=== PATIENT | female | born 1965 | race Caucasian/White ===

== ENCOUNTER → 2020-04-23 05:57 | Outpatient (CLI) | payer BC, SELFPAY ==
[2020-04-23 07:25] LABS: Absolute Lymphocyte Count 2.85 X10^3/uL (0.83-4.51); Absolute Neutrophil Count 3.4 X10^3/uL (2.0-7.7); Basophil# 0.06 X10^3/uL; Basophil% 0.8 % (0-1); Eosinophil# 0.59 X10^3/uL; Eosinophils% 7.9 % (0-5); Hematocrit 45.7 % (37-47); Hemoglobin 14.8 g/dL (12.0-15.0); Lymphocyte # 2.85 X10^3/ul (4.0); Lymphocyte % 38.3 % (19-41); Mean Corp Hgb Conc 32.4 g/dL (32-36); Mean Corpuscular Hgb 31.3 pg (27.0-32.0); Mean Corpuscular Volume 96.6 fL (81-99); Mean Platelet Vol. 8.9 fl (6.2-12.0); Monocyte% 6.7 % (0-10); NRBC Flagged by Analyzer 0 % (0-5); Neutrophil % 45.8 % (47-70); Platelet Count 321 K/mm3 (150-450); RBC Distribution Width CV 13.4 % (11.6-14.6); RBC Distribution Width SD 47.8 fl (35.1-43.9); Red Blood Count 4.73 M/mm3 (4.2-5.4); White Blood Count 7.4 K/mm3 (4.4-11.0)
[2020-04-23 07:59] LABS: ALB/GLOB Ratio 0.9 RATIO (0.9-2.4); AST(SGOT) 14 U/L (15-37); Alanine Aminotransfer ALT/SGPT 35 U/L (13-56); Albumin, Serum 3.6 g/dL (3.2-5.0); Alkaline Phosphatase 85 U/L (45-117); Anion Gap 4 (5-15); BUN 21 mg/dL (7-18); BUN/Creat Ratio 25.1 RATIO (10-20); Chloride 110 mmol/L (98-107); Cholesterol 241 mg/dL (200); Creatinine, Serum 0.84 mg/dL (0.55-1.02); EST Glomerular Filtration Rate 75 mL/min (>60); Est Glom Filt Rate - Afr Amer 91 mL/min (>60); Globulin 3.9 g/dL (2.2-4.2); Glucose 97 mg/dL (74-106); High Density Lipoprotein 65 mg/dL; Potassium 4.2 mmol/L (3.5-5.1); Protein, Total 7.5 g/dL (6.4-8.2); Sodium Level 142 mmol/L (136-145); Thyroid Stim Hormone (TSH) 3.07 uIU/mL (0.358-3.74); Triglycerides 147 mg/dL; Very Low Density Lipoprotein 29 mg/dL (5-40)
[2020-04-23 09:09] LABS: Hepatitis C Antibody Non-Reactive (Nonreactive)
== END ==
PROVIDERS: PCP Family Medicine; Referring Provider Family Medicine; Visit Provider Family Medicine
DX: Z13.220 Encounter for screening for lipoid disorders (principal); J44.9 Chronic obstructive pulmonary disease, unspecified; R53.83 Other fatigue
CPT/HCPCS: 36415; 80053; 80061; 84443; 85025; 86803

== ENCOUNTER → 2020-05-28 09:30 | Outpatient (CLI) | payer BC, SELFPAY ==
[2017-02-17 02:34] VITALS: BMI 25.9
[2020-05-28 11:15] LABS: Anion Gap 11 (5-15); BUN 17 mg/dL (7-18); Calcium,Total 9.5 mg/dL (8.5-10.1); Chloride 106 mmol/L (98-107); Cholesterol 146 mg/dL (200); Creatinine, Serum 0.77 mg/dL (0.55-1.02); EST Glomerular Filtration Rate 82 mL/min (>60); Est Glom Filt Rate - Afr Amer 99 mL/min (>60); Glucose 85 mg/dL (74-106); High Density Lipoprotein 67 mg/dL; Sodium Level 140 mmol/L (136-145); Triglycerides 66 mg/dL; Very Low Density Lipoprotein 13 mg/dL (5-40)
== END ==
PROVIDERS: PCP Family Medicine; Referring Provider Family Medicine; Visit Provider Family Medicine
DX: E78.5 Hyperlipidemia, unspecified (principal)
CPT/HCPCS: 36415; 80048; 80061

== ENCOUNTER → 2022-11-14 | Outpatient (CLI) | payer OTHER, SELFPAY ==
[2022-11-14 10:28] LABS: Hemoglobin A1c 5.3 % (3.8-5.6)
[2022-11-14 10:59] LABS: Cholesterol 214 mg/dL (200); High Density Lipoprotein 69 mg/dL; Triglycerides 112 mg/dL; Very Low Density Lipoprotein 22 mg/dL (5-40)
--- NOTE | 2022-11-14 14:51 | BI_ITS ---
MAMMOGRAPHY - BILATERAL SCREENING 3-D TOMOSYNTHESIS REASON FOR EXAM: Female, 57 years old. Routine screening PERTINENT HISTORY: No significant family history. TECHNIQUE: 2-D mammograms and 3-D Tomosynthesis of the breast (s) were performed. CAD was performed. COMPARISON: 2007, 2004 FINDINGS: The breast composition is heterogeneously dense that can obscure small breast masses. Scattered benign calcifications are seen. No dense spiculated masses or suspicious microcalcifications are identified. No architectural distortion is identified. There is no skin thickening or retraction. There has been no significant change since the prior study. BI/SCRN MAMM (CAD)W/PANTERA BILAT IMPRESSION: No mammographic signs of malignancy. Routine yearly mammograms recommended. ASSESSMENT CATEGORY: BIRADS Category 2: Benign. A letter regarding these results will be sent to the patient by the facility within 30 days. FOLLOW UP RECOMMENDATION: Yearly follow up mammogram recommended. (A) Approximately 10% of breast cancers are not detected by mammography. A normal mammogram should not delay biopsy of a clinically suspicious abnormality. Electronically Signed: Arron Shepherd MD at 20:57 EDT ,
== END | disposition home or self-care (01) ==
LOC: OPBI 14:50
PROVIDERS: PCP Family Medicine; Referring Provider Family Medicine; Visit Provider Family Medicine
DX: Z12.31 Encounter for screening mammogram for malignant neoplasm of breast (principal); Z00.00 Encounter for general adult medical examination without abnormal findings
CPT/HCPCS: 36415; 77063; 77067; 80061; 83036

== ENCOUNTER 2022-12-19 07:02 | Day surgery (SDC) | payer OTHER, SELFPAY ==
[2022-12-19 07:23] VITALS: BP 133/90; PULSE 81; RESP 16; TEMP 36.4; O2SAT 95; BMI 27.1
--- NOTE | 2022-12-19 07:26 | PCM.HP.BLA ---
History and Physical Date of Admission: 12/19/22 Date of Service: 11/24/22 MR#: [id number] Acct: [id number] Name: TYLOR OLGUIN Rep #: [id number] : 1965 Provider: Dr. Zeynep Helm MD Age/Sex: 57/F Location: [facility] Status: Signed Intake Vital Signs 02/17/1702:34 11/25/2307:36 Height 5 ft 6 in 5 ft 6 in Weight: 171 lb 4 oz BMI 27.6 BP 126/85 H Blood Pressure Location Rt brachial Position Sitting Respiration 18 Pulse 72 Pulse Source Monitor Temp 97.6 F L Temp Source Tympanic Intake Visit Reasons: COLONOSCOPY Chief Complaint: colonoscopy Allergies nickel [Nickel] Allergy (Verified 11/24/22 08:41) Rash Medications albuterol sulfate 90 mcg/actuation aerosol inhaler (Ventolin HFA) 1 - 2 puff inhalation Q6H PRN PRN Bronchospasm 06/02/13 [History Confirmed 11/24/22] fluticasone 500 mcg-salmeterol 50 mcg/dose blistr powdr for inhalation (Advair Diskus) 1 puff inhalation DAILY asthma 06/04/13 [History Confirmed 11/24/22] apixaban 2.5 mg tablet (Eliquis) 2.5 mg PO BID 11/24/22 [History Confirmed 11/24/22] aripiprazole 5 mg tablet (Abilify) 5 mg PO DAILY 11/24/22 [History Confirmed 11/24/22] citalopram 20 mg tablet (Celexa) 20 mg PO DAILY 11/24/22 [History Confirmed 11/24/22] fexofenadine-pseudoephedrine ER 180 mg-240 mg tablet,ext.release 24 hr (Lachelle-D 24 Hour) 1 tab PO QAM 11/24/22 [History Confirmed 11/24/22] magnesium oxide 500 mg tablet 500 mg PO BID 11/24/22 [History Confirmed 11/24/22] PFSH Medical History (Updated 11/26/22 @ 09:[address] Zeynep Helm MD) Protein S deficiency Social History Smoking Status: Never smoker HPI HPI HPI: 57-year-old female presents for screening colonoscopy. Patient's never had previous colonoscopy. Patient denies any family history of colon cancer. Patient denies any chronic abdominal pain/nausea/vomiting/reflux. Patient states she has bowel movements daily denies any blood. ROS General General: No weight change, appetite, fatigue, colon cancer or breast cancer HEENT HEENT: No difficulty swallowing, eye injury, eye surgery, swollen glands or hoarseness Endo Endocrine: No thyroid disease, diabetes mellitus, thyroid cancer, Hair loss, heat intolerance or cold intolerance Skin Skin: No rash or changing moles Musc Musculoskeletal: No back problems, arthritis, rheumatoid arthritis, gout or joint pain Cardio Cardiovascular: No murmur, pacemaker, heart disease, atrial fibrillation, high blood pressure, heart attack, heart stent, palpitations, shortness of breat with exertion or chest pain Psych Psychiatric: No depression, anxiety or hearing voices Resp Respiratory: No shortness of breath, No sleep apnea, No cough, No COPD, Yes asthma, No emphysema and No wheezing Gastro Gastrointestinal: No abdominal pain, No nausea or vomiting, No diarrhea, No constipation, No blood in stool, No acid reflux, No hemorrhoids, No ulcers, No gallbladder problem and No black,tarry stools Genaro Hematologic: Yes blood thinners, No blood disorders, No bleeding, No anemia and Yes blood clots Neuro Neurologic: No numbness and No tingling Exam Const General: cooperative, healthy appearing and no acute distress Nutritional Appearance: well nourished [facility] Head: normal to inspection Resp Effort & Inspection: normal respiratory effort Auscultation: clear to auscultation bilaterally Cardio Rate: regular rate Rhythm: regular rhythm GI Inspection: non-distended Palpation: soft, no guarding and nontender Skin General: no rashes or lesions noted Neuro General: patient alert, patient awake and patient oriented x3 Extrem General: no clubbing, cyanosis or edema Psych Affect: normal affect Assessment and Plan Assessment and Plan (1) Screen for colon cancer: Status: Acute (2) Protein S deficiency: Status: Acute Plan We will check with patient's PCP to see if she is able to come off the Eliquis for 2 days prior to colonoscopy or if she needs to be bridged. I have discussed the above with the patient. I have offered the patient colonoscopy for evaluation. I have explained the risks/benefits of the procedure and described the procedure. I have discussed the risks with the patient, including but not limited to: infection, bleeding, perforation of the GI tract requiring emergency surgery, inability to complete the procedure, injury to any internal organs, complications of anesthesia, etc. - the patient understands and agrees to proceed. I have answered all the patient's questions to the patient's satisfaction and the patient has no further questions. The patient has been given instructions for the colon cleansing preparation. 1 day clears, MiraLAX Dulcolax split prep. Zeynep Helm M.D. Pager: [phone] [facility] [address] [place] [address], [address] [place] [address] Office: [phone] Coding Level of Care Code Off vis,new,level 3 Diagnoses Screen for colon cancer Z12.11 Protein S deficiency D68.59 11/26/22 0913 <Electronically signed by Zeynep Helm MD> Date Zeynep Helm MD
[2022-12-19] MEDS: Lactated Ringers 1,000 ML 15 ML IV (07:33)
[2022-12-19 08:40] VITALS: BP 121/91; BP 133/90; PULSE 81; RESP 16; TEMP 36.6; O2SAT 96
--- NOTE | 2022-12-19 08:43 | OP.COLON_ITS ---
Patient Name: Arianna Cantrell Procedure Date: 12/19/2022 8:09 AM Date of : 1965 Age: 57 Procedure: Colonoscopy Indications: Screening for colorectal malignant neoplasm Providers: Zeynep Helm MD Referring MD: Harry Hughes MD Medicines: Monitored Anesthesia Care Patient Profile: This is a 57 year old female. Last Colonoscopy: none. The patient's first colonoscopy is today. Complications: No immediate complications. Procedure: Pre-Anesthesia Assessment: - Prior to the procedure, a History and Physical was performed, and patient medications and allergies were reviewed. The patient's tolerance of previous anesthesia was also reviewed. The risks and benefits of the procedure and the sedation options and risks were discussed with the patient. All questions were answered, and informed consent was obtained. Prior Anticoagulants: The patient has taken Eliquis (apixaban), last dose was 2 days prior to procedure. ASA Grade Assessment: Per anesthesia. After reviewing the risks and benefits, the patient was deemed in satisfactory condition to undergo the procedure. After I obtained informed consent, the scope was passed under direct vision. Throughout the procedure, the patient's blood pressure, pulse, and oxygen saturations were monitored continuously. The pediatric colonoscope was introduced through the anus and advanced to the cecum, identified by the appendiceal orifice, ileocecal valve and palpation. The colonoscopy was performed without difficulty. The patient tolerated the procedure well. The quality of the bowel preparation was good. Scope In: 8:22:51 AM Scope Withdrawal Time 0 hours 7 minutes 20 seconds Scope Out: 8:35:19 AM Total Procedure Duration Time 0 hours 12 minutes 28 seconds Findings: The perianal and digital rectal examinations were normal. A few small-mouthed diverticula were found in the sigmoid colon. The exam was otherwise without abnormality. Impression: - Diverticulosis in the sigmoid colon. - The examination was otherwise normal. - No specimens collected. Recommendation: - Discharge patient to home. - Resume previous diet. - Resume Eliquis (apixaban) at prior dose today. - Repeat colonoscopy in 10 years for screening purposes. Procedure Code(s): --- Professional --- 94547, PT, Colonoscopy, flexible; diagnostic, including collection of specimen(s) by brushing or washing, when performed (separate procedure) Diagnosis Code(s): --- Professional --- Z12.11, Encounter for screening for malignant neoplasm of colon K57.30, Diverticulosis of large intestine without perforation or abscess without bleeding CPT copyright 2021 [employer]. All rights reserved. The codes documented in this report are preliminary and upon sample maker hand review may be revised to meet current compliance requirements. MD Zeynep Funes MD 12/19/2022 8:43:10 AM This report has been signed electronically. Number of Addenda: 0 Note Initiated On: 12/19/2022 8:09 AM
--- NOTE | 2022-12-19 08:44 | OP.CCLET_ITS ---
12/19/2022 Harry Hughes MD [address] [place] [address] Re : Colonoscopy procedure for Arianna Cantrell Dear Dr. Hughes This procedure was performed on Monday, December 19, 2022. My impressions and recommendations are as follows: Impressions : - Diverticulosis in the sigmoid colon. - The examination was otherwise normal. - No specimens collected. Recommendations : - Discharge patient to home. - Resume previous diet. - Resume Eliquis (apixaban) at prior dose today. - Repeat colonoscopy in 10 years for screening purposes. My findings are described in the full procedure note, which is enclosed. If I can be of further assistance, please feel free to contact me at Doctor phone number(s): , Work: . Sincerely, MD Zeynep Funes MD 12/19/2022 8:43:10 AM This report has been signed electronically.
[2022-12-19 08:45] VITALS: BP 118/81; BP 133/90; PULSE 79; RESP 16; O2SAT 99
[2022-12-19 08:50] VITALS: BP 124/79; BP 133/90; PULSE 75; RESP 16; O2SAT 98
[2022-12-19 08:57] VITALS: BP 123/81; BP 133/90; PULSE 78; RESP 16; TEMP 36.6; O2SAT 98
[2022-12-19 09:10] VITALS: BP 133/90
== END 2022-12-19 09:31 | disposition home or self-care (01) ==
LOC: EN 07:03 → AC 07:04
PROVIDERS: PCP Family Medicine; Referring Provider Family Medicine; Visit Provider Surgery
PROC: 0DJD8ZZ Inspection of Lower Intestinal Tract, Via Natural or Artificial Opening Endoscopic (ICD-10-PCS; CPT 45378; principal; 2022-12-19 08:10)
DX: Z12.11 Encounter for screening for malignant neoplasm of colon (principal); D68.59 Other primary thrombophilia; K57.30 Diverticulosis of large intestine without perforation or abscess without bleeding; F32.A Depression, unspecified; Z79.01 Long term (current) use of anticoagulants; Z79.899 Other long term (current) drug therapy; Z86.711 Personal history of pulmonary embolism
CPT/HCPCS: 45378; J7120; J2405

== ENCOUNTER → 2024-03-05 | Outpatient (CLI) | payer OTHER, SELFPAY ==
--- OUTSIDE RECORDS SUMMARY | 2024-03-05 20:25 | XMS RPT_ITS | CCD ---
Author Organization [facility] Care Team Providers Care Refrigerating Oiler Name Role Phone NIKO PROCTOR Unavailable Unavailable NIKO PROCTOR Unavailable Unavailable POMERENE, [facility] Attending Unava ilable POMERENE, [facility] Primary Care Unava ilable POMERENE, [facility] Admitting Unava ilable Problems Problem Classification Problem Date Documented Da te Episodic/Chronic Administrative/social admission (4 sources) Encounter for blood-alcohol and blood-drug test; Translations: [Encounter for examination and observation for other specified reasons] Onset: 11-01-2017 Episodic Results Test Name Value Interpretation Reference Range Facil ity COVID PCR, SCREENING CONGREG ATEon 10-24-2019 CORONAVIRUS 2019,PCR NOT DETECTED Normal Not Detected [facility] Comment on above: Result Comment: Nega tive (NOT DETECTED) result does not preclude 2019-nCoV infection and should not be used as the sole basis for treatment or other patient management decisions. Negative results must be combined with clinical observations, patient history, and epidemiological information. Positive (DETECTED) result is for the presumptive identification of 2019-nCoV RNA. The 2019-nCoV RNA is generally detectable in upper and lower respiratory specimens during infection, however it can also be detected in stool. Positive results are indicative of active infection with 2019-nCoV but do not rule out bacterial infection or co-infection with other viruses. The agent detected may not be the definite cause of disease. INCONCLUSIVE and INVALID result signify that a negative or positive result could not be rendered often due to insufficient sample adequacy or quality. An INCONCLUSIVE result may also represent a low level positive result that cannot be called with a high degree of certainty. If clinically indicated, it is suggested that another sample be collected and retested. This test has not been cleared or approved by the FDA; however, the FDA has determined through the Emergency Use Authorization (EUA) process that such approval is not required at this time. This test is only authorized for the duration of time the declaration that circumstances exist to justify the authorization of the emergency use of in vitro diagnostic tests for the detection of SARS-CoV-2 virus and/or diagnosis of COVID-19 infection under section 564(b)(1) of the Act, 21 U.S.C. 360bbb-3(b)(1), unless the authorization is terminated or revoked sooner. [facility] ([facility]) is certified under CLIA-88 as qualified to perform high complexity testing. This tests analytical performance characteristics have been determined by [facility]. Testing is performed at [facility] is located at [address] [place] [address] (CLIA License #[id number], CAP #[id number]). Performed By: #### C [facility] #### [facility] [address] [place] [address] Lab Specimen Source Nasal, Nasopharyngeal Normal [facility] Comment on above: Performed By: #### [facility] #### [facility] [address] [place] [address] Encounters Encounter Date Encounter Type Care Provider Facility Start: 12-30-2020 End: 12-30-2020 [facility] Start: 11-01-2017 [facility] Facility :B Payers Date Payer Category Payer Unknown [id number] Summary Purpose Family History No Family History Records FoundNo Family History Records FoundNo Family History Records Found Advance Directives No Advanced Directives Records FoundNo Advanced Directives Records FoundNo Advanced Directives Records Found Additional Source Comments INFORMATION SOURCE (unrecogn ized section and content) DATE CREATED AUTHOR 11/01/2017 [facility] ([place]) DATE CREATED AUTHOR AUTHOR'S ORGANIZ ATION 11/19/2019 [facility] DATE CREATED AUTHOR AUTHOR'S ORGANIZ ATION 01/01/2021 [facility] FOR RECORDS PERTAINING TO PATIENTS WHO ARE OR HAVE BEEN ENROLLED IN A CHEMICAL DEPENDENCY/SUBSTANCEABUSE PROGRAM, SOME INFORMATION MAY BE OMITTED. This clinical summary was aggregated from multiple sources. Caution should be exercised in using it in the provision of clinical care. This summary normalizes information from multiple sources, and as a consequence, information in this document may materially change the coding, format and clinical context of patient data. In addition, data may be omitted in some cases. CLINICAL DECISIONS SHOULD BE BASED ON THE PRIMARY CLINICAL RECORDS. [facility]. provides no warranty or guarantee of the accuracy or completeness of information in this document.
[2024-03-14 14:10] LABS: Chlamydia By Nucleic Acid AMP Negative (Negative); Gonococcus By Nucleic Acid AMP Negative (Negative); Trich. Vag By Nucleic Acid AMP Negative (Negative)
[2024-03-14 14:20] LABS: HPV Reflexed? NOT INDICATED
== END | disposition home or self-care (01) ==
PROVIDERS: PCP Family Medicine; Referring Provider Nurse Practitioner Family; Visit Provider Nurse Practitioner Family
DX: Z12.4 Encounter for screening for malignant neoplasm of cervix (principal)
CPT/HCPCS: 87491; 87591; 88175; G0145

== ENCOUNTER → 2024-03-23 | Outpatient (CLI) | payer OTHER, SELFPAY ==
[2024-03-23 10:29] LABS: Anion Gap 5 (5-15); BUN 15 mg/dL (7-18); BUN/Creat Ratio 17.9 RATIO (10-20); Calcium,Total 9.4 mg/dL (8.5-10.1); Chloride 109 mmol/L (98-107); Cholesterol 228 mg/dL (200); Creatinine, Serum 0.84 mg/dL (0.55-1.02); EST Glomerular Filtration Rate 74 mL/min (>60); Est Glom Filt Rate - Afr Amer 89 mL/min (>60); Glucose 97 mg/dL (74-106); High Density Lipoprotein 65 mg/dL; Potassium 4.3 mmol/L (3.5-5.1); Sodium Level 141 mmol/L (136-145); Triglycerides 195 mg/dL; Very Low Density Lipoprotein 39 mg/dL (5-40)
== END | disposition home or self-care (01) ==
LOC: LAB 09:41
PROVIDERS: PCP Family Medicine; Referring Provider Nurse Practitioner Family; Visit Provider Nurse Practitioner Family
DX: Z13.220 Encounter for screening for lipoid disorders (principal); Z13.1 Encounter for screening for diabetes mellitus
CPT/HCPCS: 36415; 80048; 80061

== ENCOUNTER → 2024-04-15 | Outpatient (CLI) | payer OTHER, SELFPAY ==
--- NOTE | 2024-04-15 | IMM_PTH ---
PATIENT: TYLOR OLGUIN LOC: [facility] U#:[id number] AGE/SX: 59/F ROOM: RE04/15/[address]: Dr. Eugenia Hong DO : 1965 BED: DIS: 04/15/2024 SPEC #: [id number] RECD: 04/17/24 10:43 STATUS: LIZBETH REQ #: [id number] KEON: 04/15/24 00:[address]: Eugenia Hong DEPT: IMMUNOHISTOCHEMISTRY RECD BY: Amado Hensley ENTERED: 04/17/24 10:44 SP TYPE: IMMUNO OTHR DR: Dr. Harry Hughes MD Tissues: A - Endocervical B - Uterine cervix, NOS Procedures: p16 (initial) KI-67 (add) P16 (add) KI-67 (initial) PHYSICIAN & INSTITUTION [address] [address] SPECIMEN INFORMATION: Tissue Source: A- ECC, B- 3o'clock Clinical Info: STEPHEN Specimen Number: [id number] A, B CPT code: 13944m2,15262m6 METHODOLOGY: Deparaffinized sections of prefer/formalin-fixed tissue or PAP/DQ stained slides are incubated with monoclonal/polyclonal antibodies/oligonucleotide probes. Localization is made via biotin free immunoperoxidase method. Appropriate controls are performed and reacted as expected. Results on target cell population are indicated in the following table: RESULTS: ANTIBODY / CLONE RESULT Block A P16 (E6H4) negative Ki-67 (30-9) positive, very low Block B P16 (E6H4) negative Ki-67 (30-9) positive, very low These tests were developed and their performance characteristics determined by [facility]. They may not have been cleared or approved by the U.S. Food and Drug Administration. The FDA has determined that such clearance or approval is not necessary. The above immunohistochemical/dualISH markers are ordered and reviewed by the Pathologist. INTERPRETATION: A. Endocervical curettings: Negative for dysplasia. B. Cervix, 3o'clock, biopsy: Focal minimal HPV changes. 04/18/2024
--- NOTE | 2024-04-15 14:00 | ECC_PTH ---
PATIENT: TYLOR OLGUIN LOC: [facility]#:[id number] AGE/SX: 59/F ROOM: RE04/15/[address]: Dr. Eugenia Hong DO : 1965 BED: DIS: 04/15/2024 SPEC #: [id number] RECD: 04/15/24 15:11 STATUS: LIZBETH SEVEN #: [id number] KEON: 04/15/24 14:[address]: Eugenia Hong DEPT: SURGICAL PATHOLOGY RECD BY: Rambo Mcgregor ENTERED: 04/16/24 07:16 SP TYPE: ISMA MILLER DR: Dr. Harry Hughes MD Tissues: A - Endocervical B - Uterine cervix, NOS Procedures: Surgery Specimen Level IV HEADER OPERATION: Colposcopy PRE-OP DIAGNOSIS: LGSIL TISSUE SUBMITTED: A- ISMA B- 3o'clock MICROSCOPIC DIAGNOSIS A. Endocervical curettings: Fragments of benign ecto- and endocervical epithelium, negative for dysplasia. See comment. B. Cervix, 3o'clock, biopsy: Fragments of ectocervical mucosa with minimal HPV changes. See comment. 04/17/2024 COMMENT A,B. Immunohistochemistry ([id number]) for surrogate HPV marker (p16) supports the above diagnosis. MICROSCOPIC DESCRIPTION Slides are reviewed. GROSS DESCRIPTION A. Received in fixative is a metallic brush with adherent minute fragments of robledo-red tissue and labeled with the patient's name and and designated per the requisition as ECC BRUSH. The material is dislodged from the brush and submitted for cell block preparation in one cassette. B. Received in fixative is one container labeled with the patient's name and designated 3o'clock. The specimen consists of multiple irregular fragments of light robledo soft tissue that in aggregate measure 1.0 x 0.2 x 0.1 cm. The specimen is totally submitted in one cassette. 04/16/2024 TC:5 CPT:65451q8
== END | disposition home or self-care (01) ==
LOC: LABSPEC 15:18
PROVIDERS: PCP Family Medicine; Referring Provider Obstetrics & Gynecology; Visit Provider Obstetrics & Gynecology
DX: R87.622 Low grade squamous intraepithelial lesion on cytologic smear of vagina (LGSIL) (principal)
CPT/HCPCS: 88305; 88341; 88342

== ENCOUNTER → 2024-10-29 | Outpatient (CLI) | payer OTHER, SELFPAY ==
[2024-10-29 10:20] LABS: Cholesterol 219 mg/dL (<=200); Low Density Lipoprotein Calc. 116 mg/dL; Triglycerides 230 mg/dL; Very Low Density Lipoprotein 46 mg/dL (5-40); cholesterol:hdl ratio screen 3.87
[2024-10-29 10:21] LABS: Anion Gap 11 (5-15); BUN 18 mg/dL (4-19); BUN/Creat Ratio 19.1 RATIO (10-20); Calcium,Total 9.6 mg/dL (7.6-11.0); Carbon Dioxide 24.3 mmol/L (21.0-32.0); Chloride 106 mmol/L (98-108); Glucose 112 mg/dL (70-99); Potassium 4.5 mmol/L (3.3-5.1)
--- OUTSIDE RECORDS SUMMARY | 2024-10-29 19:04 | XMS RPT_ITS | CCD ---
Author Organization [facility] Inform ion [facility] Care Team Providers Care Brim Shaper Name Role Phone NIKO PROCTOR Unavailable Unavailable NIKO PROCTOR Unavailable Unavailable [facility], [facility] Attending Hayleeva venecia LEWIS, [facility] Primary Care Hayleeva venecia LEWIS, [facility] Admitting Hayleeva Dr. Harry Roldan Primary Care Provider [phone] Dr. Harry Hughes Referring Provider [phone] Zeynep Helm Attending Provider [phone] Dr. Zeynep Helm Other Provider Eugenia Hong Referring Eugenia Moseley Attending Harry Calvo Primary Care Unavailable Deysi RN COMPLIANCE, Suad Referring Unavailable Deysi RN COMPLIANCE, Suad Attending Harry Johnson Primary Care Unavailable Deysi RN COMPLIANCE, Suad Referring Unavailable Deysi RN COMPLIANCE, Suad Attending Harry Johnson Primary Care Unavailable Eugenia Hong Attending Harry Calvo Referring Unavailable Harry Hughes Primary Care Unavailable Allergies Allergy Classification Reported Allergen(s) Allergy Type Date of Onset Reaction(s) Facility (2 sources) nickel Drug Allergy 02-16-2017 Rash [facility] (1 source) nickel Drug Allergy 04-15-2024 [facility] Repository Medications Current Medications Medication Drug Class(es) Dates Sig (Normalized) Sig (Original) Albuterol (2 sources) beta2-Adrenergic Agonist Start: 06-02-2013 take 1 puff(s) by inhalation every six hours as needed Albuterol Sulfate (Ventolin Hfa) 1 INHALER inhaler Active 1 - 2 PUFF INHALATION EVERY 6 HOURS NEEDED June 02, 2013 1:00am apixaban 2.5 mg oral tablet (3 sources) Factor Xa Inhibitor Start: 11-24-2022 take 1 tablet by mouth twice daily Apixaban (Eliquis) 2.5 mg tablet Active 2.5 MG PO TWICE A DAY November 24, 2022 12:00am Start: 02-17-2017 End: 11-24-2022 take 2 tablets by mouth twice daily, then take 1 tablet by mouth twice daily Apixaban (Eliquis) 5 MG tablet Discontinued 5 MG PO TWICE A DAY February 17, 2017 12:00am November 24, 2022 8:41am 2 tabs twice daily for 7 days, then 1 tab twice daily ARIPiprazole 5 mg oral tablet (1 source) Atypical Antipsychotic Start: 11-24-2022 take 1 tablet by mouth once daily Aripiprazole (Abilify) 5 mg tablet Active 5 MG PO DAILY November 24, 2022 12:00am citalopram 20 mg oral tablet (1 source) Serotonin Reuptake Inhibitor Start: 11-24-2022 take 1 tablet by mouth once daily Citalopram (Celexa) 20 mg tablet Active 20 MG PO DAILY November 24, 2022 12:00am fexofenadine / Pseudoephedrine (1 source) alpha-Adrenergic Agonist, Histamine-1 Receptor Antagonist Start: 11-24-2022 take 1 tablet by mouth once daily in the morning, then take 1 tablet by mouth every twenty-four hours Fexofenadine-Pseu doephedrine (Lachelle-D 24 Hour) 180-240 mg tablet extended release 24 hr Active 1 TABLET PO EVERY MORNING November 24, 2022 12:00am Fluticasone Propion-Salmeterol (2 sources) Corticosteroid, beta2-Adrenergic Agonist Start: 06-04-2013 take 1 dose by inhalation once daily Fluticasone Propion-Salmetero l (Advair Diskus) 1 EACH blister with device Active 1 PUFF INHALATION DAILY June 04, 2013 1:00am magnesium oxide 500 mg oral tablet (1 source) Start: 11-24-2022 take 500 mg by mouth twice daily Magnesium Oxide Active 500 MG PO TWICE A DAY November 24, 2022 12:00am Completed/Discontinued Medications Medication Drug Class(es) Dates Sig (Normalized) Sig (Original) ALPRAZolam 0.5 mg oral tablet (2 sources) Benzodiazepine Start: 02-16-2017 End: 11-24-2022 take 1 tablet by mouth once daily Alprazolam (Xanax) 0.5 MG tablet Discontinued 0.5 MG PO DAILY February 16, 2017 12:00am November 24, 2022 8:42am bisacodyl 5 mg delayed release oral tablet (2 sources) Stimulant Laxative Start: 02-17-2017 End: 11-24-2022 take 1 tablet by mouth once daily Bisacodyl (Dulcolax) 5 MG tablet,delayed release (DR/EC) Discontinued 5 MG PO DAILY February 17, 2017 11:11am November 24, 2022 8:42am docusate sodium 100 mg oral capsule (2 sources) Start: 02-17-2017 End: 11-24-2022 take 1 capsule by mouth twice daily Docusate Sodium (Colace) 100 MG capsule Discontinued 100 MG PO TWICE A DAY February 17, 2017 12:00am November 24, 2022 8:42am ferrous sulfate 325 mg oral tablet (2 sources) Start: 02-17-2017 End: 11-24-2022 take 325 mg by mouth twice daily at mealtime Ferrous Sulfate Discontinued 325 MG PO TWICE DAILY WITH MEALS February 17, 2017 12:00am November 24, 2022 8:42am polyethylene glycol 3350 18703 mg powder for oral solution (2 sources) Osmotic Laxative Start: 02-17-2017 End: 11-24-2022 take 17 g by mouth once daily Polyethylene Glycol 3350 Discontinued 17 GM PO DAILY February 17, 2017 12:00am November 24, 2022 8:42am Problems Problem Classification Problem Date Documented Da te Episodic/Chronic Administrative/social admission (4 sources) Encounter for blood-alcohol and blood-drug test; Translations: [Encounter for examination and observation for other specified reasons] Onset: 11-01-2017 Episodic Asthma (2 sources) Asthma; Translations: [Unspecified asthma, uncomplicated] 02-17-2017 Chronic Cancer of other female genital organs (1 source) 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); Translations: [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)] Onset: 05-14-2024 Episodic Coagulation and hemorrhagic disorders (2 sources) Protein S deficiency disease; Translations: [Other primary thrombophilia] 11-26-2022 Chronic Other screening for suspected conditions (not mental disorders or infectious disease) (5 sources) Patient encounter status; Translations: [Encounter for screening for malignant neoplasm of colon] Onset: 03-26-2024 11-26-2022 Episodic Phlebitis; thrombophlebitis and thromboembolism (2 sources) Deep venous thrombosis of lower extremity; Translations: [Acute embolism and thrombosis of unspecified deep veins of left lower extremity] 02-17-2017 Episodic Pulmonary heart disease (2 sources) Pulmonary embolism; Translations: [Other pulmonary embolism without acute cor pulmonale] 02-17-2017 Episodic Results Test Name Value Interpretation Reference Range Facility KI-67 (initial)on 04-15-2024 KI-67 (initial) ---- Patient Age/Sex Location Account Attending Physician TYLOR OLGUIN 59/F [facility] [id number] Nasima Stone Specimen: [id number] Received: 04/17/24 Status: LIZBETH Garrett Num: [id number] Spec Type: IMMUNO Subm Dr: Dr. Eugenia Hong, DO PHYSICIAN INSTITUTION [address] [address] SPECIMEN INFORMATION: Tissue Source: A- ECC, B- 3o'clock Clinical Info: LGSIL Specimen Number: [id number], B CPT code: 68949d5,57249d1 METHODOLOGY: Deparaffinized sections of prefer/formalin-fixed tissue or PAP/DQ stained slides are incubated with monoclonal/polyclonal antibodies/oligonucleoti de probes. Localization is made via biotin free immunoperoxidase method. Appropriate controls are performed and reacted as expected. Results on target cell population are indicated in the following table: RESULTS: ANTIBODY / CLONE RESULT Block A P16 (E6H4) negative Ki-67 (30-9) positive, very low Block B P16 (E6H4) negative Ki-67 (30-9) positive, very low These tests were developed and their performance characteristics determined by [facility]. They may not have been cleared or approved by the U.S. Food and Drug Administration. The FDA has determined that such clearance or approval is not necessary. The above immunohistochemical/dual ALICIA markers are ordered and reviewed by the Pathologist. INTERPRETATION: A. Endocervical curettings: Negative for dysplasia. B. Cervix, 3o'clock, biopsy: Focal minimal HPV changes. SJ 04/18/2024 Signed (signature on file) Dr. Richard Raymond MD 04/18/24 1009 Normal [facility] Comment on above: Performed By: #### P [id number] #### [facility] [address] [place] [address]. [place], [address] Outsole Paraffiner Office Visit Reporton 04-15-2024 Outsole Paraffiner Office Visit Report [facility] [address], [address] [place] [address] OFFICE VISIT Date of Service: 04/15/24 MR#: [id number] Acct: [id number] Name: TYLOR OLGUIN Rep #: [id number] : 1965 Provider: Dr. Eugenia Stone DO Age/Sex: 59/F Location[place] [facility] [place]: Signed Intake Vital Signs 12/19/22 07:23 04/15/24 10:57 04/15/24 11:04 Height 5 ft 6 in 5 ft 6 in 5 ft 6 in Weight: 186 lb BMI 29.9 BP 130/89 H Blood Pressure Location Rt brachial Position Sitting Respiration 18 Pulse 77 Pulse Source Monitor Pulse Oximetry (%) 96 Oxygen Delivery Method room air Intake Visit Reasons: Colposcopy Chief Complaint: Colposcopy Patient Service Representative Required: No Is patient in pain?: No Allergies nickel (Nickel) Allergy (Verified 04/15/24 11:01) Rash Medications ???Medication ???Instructions ???Recorded ???Confirmed ???Type albuterol sulfate 90 mcg/actuation 1 - 2 puff inhalation Q6H PRN PRN 06/02/13 04/15/24 History aerosol inhaler (Ventolin HFA) Bronchospasm fluticasone 500 mcg-salmeterol 50 1 puff inhalation DAILY asthma 06/04/13 04/15/24 History mcg/dose blistr powdr for inhalation (Advair Diskus) apixaban 2.5 mg tablet (Eliquis) 2.5 mg PO BID 11/24/22 04/15/24 History citalopram 20 mg tablet (Celexa) 20 mg PO DAILY 11/24/22 04/15/24 History magnesium oxide 500 mg PO BID 11/24/22 04/15/24 History aripiprazole 2 mg tablet (Abilify) 2 mg PO QHS 04/15/24 04/15/24 History Post menopausal: No Patient : No : No Nurse's Note: Consult abnormal Pap and possible colposcopy [facility] Medical History Depression Alcohol use History of renal disease High cholesterol Pulmonary embolism DVT (deep venous thrombosis) Gastric reflux Non-smoker Chronic cough Leg cramps Protein S deficiency Surgical History Hx of LASIK History of bilateral cataract extraction History of laparoscopy History of surgery History of extraction of renal calculus Social History Smoking Status: Never smoker HPI Colposcopy Details: TYLOR OLGUIN is a 59 year old who presents for colposcopy due to LGSIL, hpv unknown. She has had a new sex partner in the last year. ROS Const ROS Unobtainable: All systems reviewed are unremarkable except as noted in H Resp Resp: Reports system reviewed and no additional complaints, except as documented; Denies cough GI GI: Reports as per HPI Psych Psych: Reports system reviewed and no additional complaints, except as documented Exam Const General: cooperative, healthy appearing, comfortable and no acute distress Resp Effort Inspection: normal respiratory effort General: bimanual renal exam normal bilaterally External Female Exam: normal appearance of the urethra Urethra: normal appearance of the urethra Speculum Exam - Vagina: normal appearance of the vagina Speculum Exam - Cervix: normal appearance of the cervix Bimanual Exam- Adnexa, other: normal adnexae and normal Pelvic Support: normal Skin General: no rashes or lesions noted Psych Appearance: grossly normal Speech and Movement: speech and movement normal Office Procedures Colposcopy Colposcopy Reason for colposcopy: LSIL Pap/VI history: no prior abnormal pap Consent Signed: Yes Time out performed: No Acetowhite epithelium (cervix): 3 o'clock and 4 o'clock Punctation (cervix): none Mosaicism (cervix): none Abnormal vessels (cervix): none Biopsies (cervix): 3 o'clock biopsy Details: Acetic acid was applied to the cervix. There were some changes of acetowhite that were present at the 3 and 4 o'clock position. A biopsy was taken as well as an ECC. Silver nitrite was used on the cervix for hemostasis. Coding Level of Care Code Off vis,new,level 4 Diagnoses LGSIL on Pap smear of cervix R87.612 Assessment and Plan Assessment and Plan (1) LGSIL on Pap smear of cervix: Status: Acute Plan: patient tolerated the procedure well. will call with results. Orders: Orders Colposcopy Today R87.619 - Unspecified abnormal cytological findings in specimens from cervix uteri 04/15/24 1151 Date Eugenia Hong [facility] Signature: Date (if applicable) CC: Normal [facility] Surgery Specimen Level Sofy 04-15-2024 Surgery Specimen Level IV Patient Age/Sex Location Account Attending Physician [facility]GUIN 59[facility] [id number] Nasima Stone Specimen: [id number] Received: 04/15/24 Status: LIZBETH Garrett Num: [id number] Spec Type: ECC Subm Dr: Dr. Eugenia Hong, DO HEADER OPERATION: Colposcopy PRE-OP DIAGNOSIS: LGSIL TISSUE SUBMITTED: A- ECC, B- 3o'clock MICROSCOPIC DIAGNOSIS A. Endocervical curettings: Fragments of benign ecto- and endocervical epithelium, negative for dysplasia. See comment. B. Cervix, 3o'clock, biopsy: Fragments of ectocervical mucosa with minimal HPV changes. See comment. 04/17/2024 COMMENT A,B. Immunohistochemistry ([id number]) for surrogate HPV marker (p16) supports the above diagnosis. MICROSCOPIC DESCRIPTION Slides are reviewed. GROSS DESCRIPTION A. Received in fixative is a metallic brush with adherent minute fragments of robledo-red tissue and labeled with the patient's name and and designated per the requisition as ECC BRUSH. The material is dislodged from the brush and submitted for cell block preparation in one cassette. B. Received in fixative is one container labeled with the patient's name and designated 3o'clock. The specimen consists of multiple irregular fragments of light robledo soft tissue that in aggregate measure 1.0 x 0.2 x 0.1 cm. The specimen is totally submitted in one cassette. 04/16/2024 TC:5 CPT:35325j7 Patient Age/Sex Location Account Attending Physician TYLOR OLGUIN 59/F [facility] [id number] Nasima Stone Signed (signature on file) Dr. Richard Raymond MD 04/18/24 1009 Normal [facility] Comment on above: Performed By: #### P SUIV #### [facility] [address] [place], [address] Basic Metabolic Profile (BMP )on 03-23-2024 BUN/CRE 17.9 RATIO Normal 10-20 [facility] Comment on above: Order Comment: Order Date: 03/05/24 Order Info: 0667-1 - BMP Order Info: [id number] - LIPID Performed By: #### L 500.2500, L500.4100 #### [facility] [address] [place], [place], [id number] CA,Total 9.4 mg/dL Normal 8.5-10.1 [facility] Comment on above: Order Comment: Order Date: 03/05/24 Order Info: 666-05 - BMP Order Info: [id number] - LIPID Performed By: #### L 500.2500, L500.4100 #### [facility] [address] [place], [address] Chloride [Moles/Vol] 109 mmol/L High 98-107 [facility] Comment on above: Order Comment: Order Date: 03/05/24 Order Info: 666-05 - BMP Order Info: - LIPID Performed By: #### L 500.2500, L500.4100 #### [facility] [address] [place], [address] CO2 [Moles/Vol] 27.0 mmol/L Normal 21.0-32.0 [facility] Comment on above: Order Comment: Order Date: 03/05/24 Order Info: 666-05 - BMP Order Info: - LIPID Performed By: #### L 500.2500, L500.4100 #### [facility] [address] [place], [address] Creatinine [Mass/Vol] 0.84 mg/dL Normal 0.55-1.02 [facility] Comment on above: Order Comment: Order Date: 03/05/24 Order Info: 666-05 - BMP Order Info: [id number] - LIPID Result Comment: The validity of the calculated GFR GFRAA in patients over 70 years has not been determined. Clinical correlation is essential. Performed By: #### L 500.2500, L500.4100 #### [facility] [address] [place], [address] EST GFR - AA 89 mL/min Normal >60 [facility] Comment on above: Order Comment: Order Date: 03/05/24 Order Info: 666-05 - BMP Order Info: [id number] - LIPID Result Comment: Afri can Qatari GFR Calc Performed By: #### L 500.2500, L500.4100 #### [facility] [address] [place], [address] GAP 5 Normal 5-15 [facility] Comment on above: Order Comment: Order Date: 03/05/24 Order Info: 0667- - BMP Order Info: [id number] - LIPID Performed By: #### L 500.2500, L500.4100 #### [facility] [address] [place], [address] GFR/1.73 sq M.predicted among non-blacks MDRD (S/P/Bld) [Vol rate/Area] 74 mL/min/{1.73_m2} Normal >60 [facility] Comment on above: Order Comment: Order Date: 03/05/24 Order Info: 06- - BMP Order Info: [id number] - LIPID Result Comment: Non- GFR Calc Performed By: #### L 500.2500, L500.4100 #### [facility] [address] [place], [address] Glucose [Mass/Vol] 97 mg/dL Normal 74-106 [facility] Comment on above: Order Comment: Order Date: 03/05/24 Order Info: 0667- - BMP Order Info: [id number] - LIPID Performed By: #### L 500.2500, L500.4100 #### [facility] [address] [place], [address] Potassium [Moles/Vol] 4.3 mmol/L Normal 3.5-5.1 [facility] Comment on above: Order Comment: Order Date: 03/05/24 Order Info: 0667- - BMP Order Info: [id number] - LIPID Performed By: #### L 500.2500, L500.4100 #### [facility] [address] [place], [address] Sodium [Moles/Vol] 141 mmol/L Normal 136-145 [facility] Comment on above: Order Comment: Order Date: 03/05/24 Order Info: 06 - [facility] Order Info: [id number] - LIPID Performed By: #### L 500.2500, L500.4100 #### [facility] [address] [place], [address] Urea nitrogen [Mass/Vol] 15 mg/dL Normal 7-18 [facility] Comment on above: Order Comment: Order Date: 03/05/24 Order Info: 666-05 - BMP Order Info: [id number] - LIPID Performed By: #### L 500.2500, L500.4100 #### [facility] [address] [place], [address] Lipid Profileon 03-23-2024 Cholesterol [Mass/Vol] 228 mg/dL High 200 [facility] Comment on above: Order Comment: Order Date: 03/05/24 Order Info: 666-05 - [facility] Order Info: [id number] - LIPID Result Comment: <200 mg/dL Desirable 200-240 mg/dL Borderline >240 mg/dL High Risk Performed By: #### L 500.2500, L500.4100 #### [facility] [address] [place], [address] Cholesterol in HDL [Mass/Vol] 65 mg/dL Normal [facility] Comment on above: Order Comment: Order Date: 03/05/24 Order Info: 666-05 - [facility] Order Info: [id number] - LIPID Result Comment: The drugs N-Acetylcysteine and Metamizole may falsely depress this assay. Reference Range HDL <40 mg/dL Low HDL Cholesterol HDL >or= 60 mg/dL High HDL Cholesterol Performed By: #### L 500.2500, L500.4100 #### [facility] [address] [place], [address] Cholesterol in LDL [Mass/Vol] 124 mg/dL Normal 0-130 [facility] Comment on above: Order Comment: Order Date: 03/05/24 Order Info: 06 - BMP Order Info: [id number] - LIPID Performed By: #### L 500.2500, L500.4100 #### [facility] [address] [place], [address] Cholesterol in VLDL [Mass/Vol] 39 mg/dL Normal 5-40 [facility] Comment on above: Order Comment: Order Date: 03/05/24 Order Info: 0667-1 - BMP Order Info: [id number] - LIPID Performed By: #### L 500.2500, L500.4100 #### [facility] [address] [place], [address] Triglyceride [Mass/Vol] 195 mg/dL Normal [facility] Comment on above: Order Comment: Order Date: 03/05/24 Order Info: 666-05 - [facility] Order Info: [id number] - LIPID Result Comment: The drugs N-Acetylcysteine and Metamizole may falsely depress this assay. Serum Triglycerides Reference Interval Normal <150 mg/dL Borderline high 150 - 199 mg/dL High 200 - 499 mg/dL Very High > or = 500 mg/dL Performed By: #### L 500.2500, L500.4100 #### [facility] [address] [place], [address] PAP I-G CT/NG/T RF HPVon ADEQ Comment Normal . [facility] Comment on above: Order Comment: Speci men Comment: [id number] Specimen Comment: Source.............Cervix;Endocervix Specimen Comment: Other..............Other Specimen Comment: No. of containers..01 ThinPrep Vial Result Comment: Sati sfactory for evaluation. Endocervical and/or squamous metaplastic cells (endocervical component) are present. Performed By: #### L 7400.0325 #### [facility] [address] [place], [address] CHLAMY,NUC ACID Negative Normal Negative [facility] Comment on above: Order Comment: Speci men Comment: [id number] Specimen Comment: Source.............Cervix;Endocervix Specimen Comment: Other..............Other Specimen Comment: No. of containers..01 ThinPrep Vial Performed By: #### L 7400.0325 #### [facility] [address] [place], [place], [address] COMM . Normal . [facility] Comment on above: Order Comment: Speci men Comment: [id number] Specimen Comment: Source.............Cervix;Endocervix Specimen Comment: Other..............Other Specimen Comment: No. of containers..01 ThinPrep Vial Performed By: #### L 7400.0325 #### [facility] [address] [facility] [place], [address] COMMENT Comment Normal . [facility] Comment on above: Order Comment: Speci men Comment: [id number] Specimen Comment: Source.............Cervix;Endocervix Specimen Comment: Other..............Other Specimen Comment: No. of containers..01 ThinPrep Vial Result Comment: This liquid based ThinPrep(R) pap test was screened with the use of an image guided system. Performed By: #### L 7400.0325 #### [facility] [address] [place], [place], [address] DIAG Comment Abnormal . [facility] Comment on above: Order Comment: Speci men Comment: [id number] Specimen Comment: Source.............Cervix;Endocervix Specimen Comment: Other..............Other Specimen Comment: No. of containers..01 ThinPrep Vial Result Comment: EPIT HELIAL CELL ABNORMALITY. LOW GRADE SQUAMOUS INTRAEPITHELIAL LESION (LSIL). CELLULAR CHANGES ASSOCIATED WITH ATROPHY ARE PRESENT. Performed By: #### L 7400.0325 #### [facility] [address] [place], [place], [address] GC BY NUC ACID Negative Normal Negative [facility] Comment on above: Order Comment: Speci men Comment: [id number] Specimen Comment: Source.............Cervix;Endocervix Specimen Comment: Other..............Other Specimen Comment: No. of containers..01 ThinPrep Vial Performed By: #### L 7400.0325 #### [facility] [address] [place], [place], [address] PAPSMR Comment Normal . [facility] Comment on above: Order Comment: Speci men Comment: [id number] Specimen Comment: Source.............Cervix;Endocervix Specimen Comment: Other..............Other Specimen Comment: No. of containers..01 ThinPrep Vial Result Comment: The Pap smear is a screening test designed to aid in the detection of premalignant and malignant conditions of the uterine cervix. It is not a diagnostic procedure and should not be used as the sole means of detecting cervical cancer. Both false-positive and false-negative reports do occur. Performed By: #### L 7400.0325 #### [facility] [address] [place], [place], [address] Path.prov.IDC-9 Comment Normal . [facility] Comment on above: Order Comment: Speci men Comment: [id number] Specimen Comment: Source.............Cervix;Endocervix Specimen Comment: Other..............Other Specimen Comment: No. of containers..01 ThinPrep Vial Result Comment: R87. 612 Performed By: #### L 7400.0325 #### [facility] [address] [place], [place], [address] PERFORM Comment Normal . [facility] Comment on above: Order Comment: Speci men Comment: [id number] Specimen Comment: Source.............Cervix;Endocervix Specimen Comment: Other..............Other Specimen Comment: No. of containers..01 ThinPrep Vial Result Comment: Roberto Velázquez, Human Resources Designate (ASCP) Performed By: #### L [id number] #### [facility] [address] [place], [place], [id number] SIGN Comment Normal . [facility] Comment on above: Order Comment: Speci men Comment: [id number] Specimen Comment: Source.............Cervix;Endocervix Specimen Comment: Other..............Other Specimen Comment: No. of containers..01 ThinPrep Vial Result Comment: Jocelin Vasquez MD, Pathologist Performed By: #### L [id number] #### [facility] [address] [place], [place], [id number] TRICH VAG LITZY Negative Normal Negative [facility] Comment on above: Order Comment: Speci men Comment: [id number] Specimen Comment: Source.............Cervix;Endocervix Specimen Comment: Other..............Other Specimen Comment: No. of containers..01 ThinPrep Vial Result Comment: Perf ormed at: [address] [id number] [employer] Floorperson: Tricia Oglesby MD, Phone: [phone] Performed at: =[address] [id number] [employer] Floorperson: Tricia Oglesby MD, Phone: [phone] Performed By: #### L [id number] #### [facility] [address] [place], [address] Basophil percentageOrdered B y: Harry Hughes on 11-14-2022 Cholesterol [Mass/Vol] 214 mg/dL <200 [facility] Comment on above: <200 mg/dL Desirable 200-240 mg/dL Borderline >240 mg/dL High Risk Triglyceride [Mass/Vol] 112 mg/dL <199 [facility] Comment on above: The drugs N-Acetylcy steine and Metamizole may falsely depress this assay.Serum Triglycerides Reference Interval Normal <150 mg/dL Borderline high 150 - 199 mg/dL High 200 - 499 mg/dL Very High > or = 500 mg/dL Serum or plasma cholesterol in HDL measurement (mass/volume)Ordered By: Harry Hughes on 11-14-2022 Cholesterol in HDL [Mass/Vol] 69 mg/dL >40 [facility] Comment on above: The drugs N-Acetylcy steine and Metamizole may falsely depress this assay. Reference Range HDL <40 mg/dL Low HDL Cholesterol HDL >or= 60 mg/dL High HDL Cholesterol Serum or plasma cholesterol in VLDL measurement (mass/volume)Ordered By: Harry Hughes on 11-14-2022 Cholesterol in VLDL [Mass/Vol] 22 mg/dL 5-40 [facility] Serum or plasma low density lipoprotein (LDL) cholesterol measurement (mass/volume)Ordered By: Harry Hughes on 11-14-2022 Cholesterol in LDL [Mass/Vol] 123 mg/dL 0-130 [facility] Whole blood hemoglobin A1c/t otal hemoglobin ratio (mass fraction)Ordered By: Harry Hughes on 11-14-2022 HbA1c (Bld) [Mass fraction] 5.3 % 3.8-5.6 [facility] Comment on above: Normal < 5.7 % Predi abetic 5.7 - 6.4 % Diabetic >or= 6.5 % Please note range changes. COVID PCR, SCREENING CONGREG ATEon 10-24-2019 CORONAVIRUS 2019,PCR NOT DETECTED Normal Not Detected [facility] Comment on above: Result Comment: [...] is terminated or revoked sooner. [facility] ([facility]) is certified under CLIA-88 as qualified to perform high complexity testing. This tests analytical performance characteristics have been determined by [facility]. Testing is performed at [facility] is located at [address] [place] [address] (CLIA License #[id number], CAP #[id number]). Performed By: #### C VCLA #### [facility] [address] [place] [address] Lab Specimen Source Nasal, Nasopharyngeal Normal [facility] Comment on above: Performed By: #### C VCLA #### [facility] [address] [place] [address] Vital Signs Date Time Vital Sign Value Performing Clinician Sona barroso 12-19-2022 08:57-0400 Body temperature 98 [degF] Dr. Harry Hughes Work Phone: [facility] 12-19-2022 08:57-0400 Diastolic blood pressure 81 mm[Hg] Dr. Harry Hughes Work Phone: [facility] 12-19-2022 08:57-0400 Heart rate 78 /min Dr. Harry Hughes Work Phone: [facility] 12-19-2022 08:57-0400 Respiratory rate 16 /min Dr. Harry Hughes Work Phone: [facility] 12-19-2022 08:57-0400 SaO2% (BldA) [Mass fraction] 98 % Dr. Harry Hughes Work Phone: [facility] 12-19-2022 08:57-0400 Systolic blood pressure 123 mm[Hg] Dr. Harry Hughes Work Phone: [facility] 12-19-2022 07:23-0400 Body height 167.[address] Harry Hughes Work Phone: [facility] 12-19-2022 07:23-0400 Body mass index (BMI) [Ratio] 27.1 kg/m2 Dr. Harry Hughes Work Phone: [facility] 12-19-2022 07:23-0400 Body weight 76.[address] Harry Hughes Work Phone: [facility] 11-24-2022 08:36-0400 Body mass index (BMI) [Ratio] 27.6 kg/m2 Dr. Harry Hughes Work Phone: [facility] 11-24-2022 08:36-0400 Body temperature 97.6 [degF] Dr. Harry Hughes Work Phone: [facility] 11-24-2022 08:36-0400 Body weight 77.[address] Harry Hughes Work Phone: [facility] 11-24-2022 08:36-0400 Diastolic blood pressure 85 mm[Hg] Dr. Harry Hughes Work Phone: [facility] 11-24-2022 08:36-0400 Heart rate 72 /min Dr. Harry Hughes Work Phone: [facility] 11-24-2022 08:36-0400 Respiratory rate 18 /min Dr. Harry Hughes Work Phone: [facility] 11-24-2022 08:36-0400 Systolic blood pressure 126 mm[Hg] Dr. Harry Hughes Work Phone: [facility] Encounters Encounter Date Encounter Type Care Provider Facility Start: 04-15-2024 End: 04-15-2024 ambulatory Eugenia Vande Velde Facility:[facility] Start: 04-15-2024 End: 04-15-2024 ambulatory Eugenia Vande Velde Facility:[facility] Start: 03-23-2024 End: 03-23-2024 ambulatory Suad Deysi RN COMPLIANCE Facility:[facility] Start: 03-05-2024 End: 03-05-2024 ambulatory Suad Deysi RN COMPLIANCE Facility:[facility] Start: 12-19-2022 Non-patient / Non-visit Dr. Oh Hughes Work Phone: [facility] Start: 12-19-2022 End: 12-19-2022 Admission to same day surgery center Dr. Harry Hughes Work Phone: [facility] Work Phone: Start: 12-19-2022 End: 12-19-[address] Harry Hughes Work Phone: [facility] Work Phone: Start: 11-24-2022 End: 11-24-[address] Harry Hughes Work Phone: [facility] Work Phone: Start: 11-14-2022 End: 11-14-2022 ambulatory [facility] Work Phone: Start: 11-14-2022 End: 11-14-2022 Patient encounter procedure [facility] Work Phone: Start: 12-30-2020 End: 12-30-2020 ambulatory [facility] Start: 11-01-2017 Ambulatory NIKO PROCTOR Facility :B Procedures Date Procedure Procedure Detail Performing Clinician Start: 12-19-[address] Harry velazquez Work Phone: Start: 11-14-2022 Screening mammography Plan of Treatment Date Care Activity Detail Author Start: 12-19-2022 Patient discharge [facility] Colonoscopy [facility] Patient referral [facility] Work Phone: Payers Date Payer Category Payer Private Health Insurance [id number] 2024 Self-pay [id number] 2017 Unknown [id number] 2008 Unknown ANTHEM [id number] Unknown [id number] [id number] [id number] Unknown [id number] [id number] [id number] Unknown [id number] 2.16.8 [id number] Unknown [id number] 2.16.8 [id number] Social History Date Type Detail Facility Start: 02-17-2017 End: 12-14-2022 Tobacco smoking status NHIS Unknown if ever smoked [facility] Start: 1965 Sex Assigned At Female [facility] NEGATED: Highlighted row [facility] Goals Date Patient Goal Desired Activity /State Mental Status Date Assessment Result Facility 12-19-2022 Cognitive function Level Of Cons ciousness Follows Commands;Drowsy [facility] Work Phone: 12-19-2022 Cognitive function Voice/Name [facility] Work Phone: History and physical note 12-19-2022 Note Date & Type Note Facility 12-19-2022 History and physi satya note Note Date/Time December 19, 2022 7:27am [facility] Medical Records Department [address] [place] [address] History & Physical Exam 12/19/22725 MR#: [id number] Acct: [id number] Name: TYLOR OLGUIN Rep #:[id number] : 1965 57 From: Zeynep Helm MD PCP: Dr. Harry Hughes MD Status:REG S DC Location: [place] [address] History and Physical Date of Admission: 12/19/22 Date of Service: 11/24/22 MR#: [id number] Acct: [id number] Name: TYLOR OLGUIN Rep #: [id number] : 1965 Provider: Dr. Zeynep Helm MD Age/Sex: 57/F Location: [facility] Status: Signed Intake Vital Signs 02/17/1702:34 11/25/2307:36 Height 5 ft 6 in 5 ft 6 in Weight: 171 lb 4 oz BMI 27.6 BP 126/85 H Blood Pressure Location Rt brachial Position Sitting Respiration 18 Pulse 72 Pulse Source Monitor Temp 97.6 F L Temp Source Tympanic Intake Visit Reasons: COLONOSCOPY Chief Complaint: colonoscopy Allergies nickel [Nickel] Allergy (Verified 11/24/22 08:41) Rash Medications albuterol sulfate 90 mcg/actuation aerosol inhaler (Ventolin HFA) 1 - 2 puff inhalation Q6H PRN PRN Bronchospasm 06/02/13 [History Confirmed 11/24/22] fluticasone 500 mcg-salmeterol 50 mcg/dose blistr powdr for inhalation (Advair Diskus) 1 puff inhalation DAILY asthma 06/04/13 [History Confirmed 11/24/22] apixaban 2.5 mg tablet (Eliquis) 2.5 mg PO BID 11/24/22 [History Confirmed 11/24/22] aripiprazole 5 mg tablet (Abilify) 5 mg PO DAILY 11/24/22 [History Confirmed 11/24/22] citalopram 20 mg tablet (Celexa) 20 mg PO DAILY 11/24/22 [History Confirmed 11/24/22] fexofenadine-pseudoephedrine ER 180 mg-240 mg tablet,ext.release 24 hr (Lachelle-D 24 Hour) 1 tab PO QAM 11/24/22 [History Confirmed 11/24/22] magnesium oxide 500 mg tablet 500 mg PO BID 11/24/22 [History Confirmed 11/24/22] PFSH Medical History (Updated 11/26/22 @ 09:[address] Zeynep Helm MD) Protein S deficiency Social History Smoking Status: Never smoker HPI HPI HPI: 57-year-old female presents for screening colonoscopy. Patient's never had previous colonoscopy. Patient denies any family history of colon cancer. Patient denies any chronic abdominal pain/nausea/vomiting/reflux. Patient states she has bowel movements daily denies any blood. ROS General General: No weight change, appetite, fatigue, colon cancer or breast cancer HEENT HEENT: No difficulty swallowing, eye injury, eye surgery, swollen glands or hoarseness Endo Endocrine: No thyroid disease, diabetes mellitus, thyroid cancer, Hair loss, heat intolerance or cold intolerance Skin Skin: No rash or changing moles Musc Musculoskeletal: No back problems, arthritis, rheumatoid arthritis, gout or joint pain Cardio Cardiovascular: No murmur, pacemaker, heart disease, atrial fibrillation, high blood pressure, heart attack, heart stent, palpitations, shortness of breat withexertion or chest pain Psych Psychiatric: No depression, anxiety or hearing voices Resp Respiratory: No shortness of breath, No sleep apnea, No cough, No COPD, Yes asthma, No emphysema and No wheezing Gastro Gastrointestinal: No abdominal pain, No nausea or vomiting, No diarrhea, No constipation, No blood in stool, No acid reflux, No hemorrhoids, No ulcers, No gallbladder problem and No black,tarry stools Genaro Hematologic: Yes blood thinners, No blood disorders, No bleeding, No anemia and Yes blood clots Neuro Neurologic: No numbness and No tingling Exam Const General: cooperative, healthy appearing and no acute distress Nutritional Appearance: well nourished HENSD Head: normal to inspection Resp Effort & Inspection: normal respiratory effort Auscultation: clear to auscultation bilaterally Cardio Rate: regular rate Rhythm: regular rhythm GI Inspection: non-distended Palpation: soft, no guarding and nontender Skin General: no rashes or lesions noted Neuro General: patient alert, patient awake and patient oriented x3 Extrem General: no clubbing, cyanosis or edema Psych Affect: normal affect Assessment and Plan Assessment and Plan (1) Screen for colon cancer: Status: Acute (2) Protein S deficiency: Status: Acute Plan We will check with patient's PCP to see if she is able to come off the Eliquis for 2 days prior to colonoscopy or if she needs to be bridged. I have discussed the above with the patient. I have offered the patient colonoscopy for evaluation. I have explained the risks/benefits of the procedure and described the procedure. I have discussed the risks with the patient, including but not limited to: infection, bleeding, perforation of the GI tract requiring emergency surgery, inability to complete the procedure, injury to any internal organs, complications of anesthesia, etc. - the patient understands and agrees to proceed. I have answered all the patient's questions to the patient's satisfaction and the patient has no further questions. The patient has been given instructions for the colon cleansing preparation. 1 day clears, MiraLAX Dulcolax split prep. Zeynep Helm M.D. Pager: [phone] [facility] [address] [place] [address], [address] [place] [address] Office: [phone] Coding Level of Care Code Off vis,new,level 3 Diagnoses Screen for colon cancer Z12.11 Protein S deficiency D68.59 11/26/22 0913 <Electronically signed by Zeynep Helm MD> Date Zeynep Helm MD 12/19/22726 <Electronically signed by Zeynep Helm MD> Cosigner Signature (if applicable): CC: Dr. Harry Hughes MD; Dr. Zeynep Helm MD~ Signed ADDENDUM by Dr. Zeynep Helm MD on 12/19/22 at 0727 Addendum I have examined the patient and the H&P has been reviewed. There are no clinicalchanges since date of exam. 12/19/22726<Electronically signed by Zeynep Helm MD> Cosigner Signature (if applicable): cc: Dr. Harry Hughes MD; Dr. Zeynep Helm MD ~* Signed [facility] Work Phone: Procedure note 12-19-2022 Note Date & Type Note Facility 12-19-2022 Procedure note [facility] Procedure note 12-19-2022 Note Date & Type Note Facility 12-19-2022 Procedure note [facility] Evaluation note Note Date & Type Note Facility Evaluation note No assessment information availa ble [facility] Work Phone: Evaluation note Note Date & Type Note Facility Evaluation note Diagnosis Onset Date Protein S deficiency acute Screen for colon cancer acut e [facility] Work Phone: Summary Purpose Family History No Family History Records Found Relationship Condition Age at Onset Recorded Date/T farheen Unknown Family History?Clotting Disorder Unknown February 17, 2017 2:16am Advance Directives No Advanced Directives Records Found Advance Directive Response Recorded Date/ Time Advance Directives No June 04, 2013 9:59am Living Will No February 17 17 2:39am Power of Behavior Therapist No February 17, 2017 2:39am Advance Directive Response Recorded Date/ Time Advance Directives No June 04, 2013 9:59am Living Will No December 14 3 10:47am Power of Behavior Therapist No December 14 023 10:47am Chief Complaint and Reason for Visit Chief Complaint SCREENING - E ORDER FOR LABS Chief Complaint SCREENING - E ORDER FOR LABS COLONOSCOPY Reason for Visit Protein S deficiency Screen for colon cancer Additional Source Comments INFORMATION SOURCE (unrecogn ized section and content) DATE CREATED AUTHOR 11/01/2017 [facility] ([place]) DATE CREATED AUTHOR AUTHOR'S ORGANIZ ATION 11/19/2019 [facility] DATE CREATED AUTHOR AUTHOR'S ORGANIZ ATION 01/01/2021 [facility] DATE CREATED AUTHOR AUTHOR'S ORGANIZ ATION 05/17/2024 [facility] Care Teams (unrecognized sec tion and content) Team Status: Active Member Role Status Dates Dr. Harry Hughes MD Family Provider Active Dr. Harry Hughes MD Primary Care Provider Active Team Status: Inactive Member Role Status Dates Dr. Harry Hughes MD Primary Care Provi popeye, Attending Provider, Referring Provider Active Team Status: Inactive Member Role Status Dates Dr. Harry Hughes MD Primary Care Provider, Referring Provider Active Dr. Zeynep Helm MD Attending Provider Active Team Status: Active Member Role Status Dates Dr. Harry Hughes MD Primary Care Provider, Referring Provider Active Dr. Zeynep Helm MD Attending Provider, Other Pro vider Active Goals (unrecognized section and content) Goals may be documented in a n alternate section FOR RECORDS PERTAINING TO PATIENTS WHO ARE [...] BE BASED ON THE PRIMARY CLINICAL RECORDS. [employer] provides no warranty or guarantee of the accuracy or completeness of information in this document.
== END | disposition home or self-care (01) ==
PROVIDERS: PCP Family Medicine; Referring Provider Family Medicine; Visit Provider Family Medicine
DX: E78.5 Hyperlipidemia, unspecified (principal)
CPT/HCPCS: 36415; 80048; 80061